=== PATIENT | male | born 1955 | race Caucasian/White ===

== ENCOUNTER 2017-07-28 08:06 | Outpatient (CLI) | payer BC ==
--- NOTE | 2017-07-28 10:53 | MRI ---
MRI CERVICAL SPINE WITH CORONAL AND SAGITTAL REFORMATIONS: Date: 07/28/17 HISTORY: Left arm numbness, bilateral leg numbness, cervicalgia. FINDINGS: The vertebral body heights and marrow signal are maintained. Mild disc osteophyte complexes are seen with mild uncovertebral hypertrophic changes, most prominent at C6-7 level. No effacement of the an terior thecal sac or cord impingement is identified. Mild neural foraminal stenotic changes are note d bilaterally at C6-7 level. The cervical spinal cord demonstrates normal course, caliber, and signa l. No tonsillar herniation is seen. The paraspinal musculature is unremarkable. There is mild left-s ided neural foraminal stenosis at C4-5 level. IMPRESSION: Mild cervical spondylosis. POS: [facility]
== END 2017-07-28 08:07 | disposition home or self-care (01) ==
LOC: SCSMRI 08:06
DX: M47.22 Other spondylosis with radiculopathy, cervical region (principal); M54.2 Cervicalgia; G56.20 Lesion of ulnar nerve, unspecified upper limb
CPT/HCPCS: 72141

== ENCOUNTER 2017-08-30 08:55 | Outpatient (CLI) | payer BC ==
--- NOTE | 2017-08-30 12:03 | MRI ---
MRI BRAIN WITH AND WITHOUT CONTRAST: Date: 08-30-17 Technique: Multiplanar, multisequential imaging of the brain obtained. Post contrast images were obta ined with administration of 10 cc of MultiHance IV. History: Paresthesia. Numbness. Correlation made with prior MRI of 09-20-07, CT 05-29-16. The CT of 05-29-16 revealed a focal lucency i n the cortical region of the left parietal lobe suggesting old subcortical infarct. FINDINGS: On today's exam, FLAIR sequence shows focal area of gliosis in the subcortical left parietal lobe reg ion corresponding to the area of lucency seen on CT of 05-29-16. This would be consistent with an old lacunar infarct in the subcortical white matter which was present on 05-29-16. There is no evidence fo r restricted diffusion on today's study. No evidence of acute infarct. No mass or edema. No evidence of hemorrhage. No other significant white matter abnormalities seen. The intracranial internal carotid arteries, proximal cerebral arteries, and basilar arteries show lukas w voids. Mild mucosal edema in the maxillary sinuses and focal mucous retention cyst in the floor of the right maxillary antrum which measures approximately 1.8 cm. IMPRESSION: There is evidence of a remote lacunar infarct in the subcortical region of the left parietal lobe whi ch was present on CT of 05-29-16. There is focal gliosis at this site seen on FLAIR sequence today. No enhancement. No evidence of acute abnormality seen on today's exam. POS: [facility]
== END 2017-08-30 08:56 | disposition home or self-care (01) ==
LOC: SCSMRI 08:55
PROVIDERS: ATTEND Specialist
DX: R20.2 Paresthesia of skin (principal)
CPT/HCPCS: 70553

== ENCOUNTER 2019-06-15 10:09 | Outpatient (CLI) | payer BC ==
--- NOTE | 2019-06-15 11:41 | MRI ---
MRI BRAIN AND INTERNAL AUDITORY CANALS WITH AND WITHOUT CONTRAST: Date: 06/15/2019 HISTORY: 63-year-old male with ataxia and altered mental status. Hallucinations. TECHNIQUE: Multiplanar, multisequence MRI, both whole brain images and thin slices through the IACs, pre and pos t IV injection of gadolinium-based contrast agent. FINDINGS: The ventricles are normal in size and configuration. There is a small, patchy approximately 1.2 x 0.9 cm focus of T2 hyperintense signal in the left parietal deep cerebral white matter puga radiata. There are very mild chronic ischemic white matter changes of the cerebrum. There is mild cortical vol ume loss. Flow voids are maintained in the major arteries of [place] of [place]. There is no other major intra-axial signal abnormality, restricted diffusion, abnormal intra-axial enhancement, mass, m idline shift or any other mass effect, recent intra-axial hemorrhage, or extra-axial fluid collection. There is an approximately 0.4 x 0.3 cm focal T2 hyperintense and T1 hypointense signal ab normality in the left side of the ayan. There is no abnormal enhancement, mass, or morphologic abnormality, involving the cerebellopontine an gles, 7th-8th nerve complexes, internal auditory canals, cochleae, vestibules, vestibular aqueducts, or semicircular canals. IMPRESSION: 1) tiny old lacunar infarction in the left side of the ayan. 2) small old infarction in left parietal deep cerebral white matter. 3) no pathology of the inner ear structures identified.
== END 2019-06-15 10:10 | disposition home or self-care (01) ==
LOC: SCSMRI 10:09
PROVIDERS: ATTEND Internal Medicine
DX: R27.0 Ataxia, unspecified (principal); R41.82 Altered mental status, unspecified; I25.2 Old myocardial infarction
CPT/HCPCS: 70553; 82565

== ENCOUNTER 2020-04-03 12:59 | Emergency (ER) | payer BC, OTHER ==
[2020-04-04 16:09] LABS: SARS-CoV-2 MS2 Positive; SARS-CoV-2 N Gene Negative; SARS-CoV-2 S Gene Negative; SARS-CoV-2 orf1ab Negative
== END 2020-04-03 13:13 | disposition home or self-care (01) ==
LOC: ERS 12:59
DX: Z20.828 Contact with and (suspected) exposure to other viral communicable diseases (principal); K21.9 Gastro-esophageal reflux disease without esophagitis; M19.90 Unspecified osteoarthritis, unspecified site; I10 Essential (primary) hypertension; F32.9 Major depressive disorder, single episode, unspecified
CPT/HCPCS: 87635; 99283; U0003